=== PATIENT | female | born 1995 | race Caucasian/White ===

== ENCOUNTER 2018-06-10 14:13 | Emergency (ER) | payer BC ==
[2018-06-10] MEDS ORDERED: ONDANSETRON 4 MG/2 ML VIAL IVP ONE (14:27)
[2018-06-10] MEDS ORDERED: NS 1,000 ML IV ONE (14:27)
[2018-06-10 14:37] LABS: PLATELET COUNT 207 10^3/uL (150-400)
[2018-06-10] MEDS ORDERED: LORazepam 2 MG/ML INJ IVP ONE (14:38)
--- NOTE | 2018-06-10 14:43 | EDPHY ---
H & P Time Seen by Provider: 06/10/18 14:15 HPI/ROS: HPI Lightheaded, palpitations, anxious. 23-year-old female by ambulance. This patient reports that she was out running errands. She reports that while driving she had a sensation of a racing heart, feeling lightheaded with generalized weakness all over, shaky and feeling anxious. She reports that this was intermittent in nature but worsened when she was on her way home from [employer]. She then called the ambulance. She has had sensation similar to this in the past but not as intense. She does have a history of anxiety and panic attacks. She currently takes metformin for PCOS. She was also recently started on spironolactone a few days ago. She does not have any chest pain. No shortness of breath. She is feeling better now but states that she still feels mildly anxious. ROS: Constitutional: No fever, no chills. As above. Eyes: No discharge. No changes in vision. ENT: No sore throat. No nasal congestion or rhinorrhea. Respiratory: No cough. No shortness of breath. Cardiac: No chest pain, as above. Gastrointestinal: No abdominal pain, no vomiting, no diarrhea. Genitourinary: No hematuria. No dysuria or increased frequency with urination. Musculoskeletal: No back pain. No neck pain. No myalgias or arthralgias. Skin: No rashes. Neurological: No headache. No focal weakness or altered sensation. Past medical history: Seizure, attention deficit hyperactivity disorder. Social history: She is a student [employer]. No alcohol. No IV drugs or street drugs. She is here by herself. Physical Exam: General Appearance: Alert, she is mildly anxious but not in distress. This patient is responding to questions appropriately and in full sentences. This patient appears well-hydrated and well-nourished. Eyes: Pupils equal and round no pallor or injection. No lid edema, erythema or injection. Respiratory: There are no retractions, lungs are clear to auscultation with good air movement bilaterally. Cardiovascular: Regular rate and rhythm. No murmur. Gastrointestinal: Abdomen is soft and nontender, no masses, bowel sounds normal. No focal tenderness at McBurney's point. No Nieto sign. Neurological: Motor sensory function is grossly intact. Cranial nerves are normal. Gait is normal. Skin: Warm and dry, no rashes. Musculoskeletal: Neck is supple and nontender. Extremities are symmetrical. All joints range without pain or impingement. Psychiatric: No agitation. No depression. Database: EKG: EKG time is 3:42 p.m.; EKG shows a narrow complex normal sinus rhythm with a ventricular rate of 65. The [place], QRS, QT intervals are within normal limits. There are no ST-T wave changes indicative of ischemic or injury pattern. No evidence of right heart strain. No evidence of WPW, Brugada syndrome, hypertrophic cardiomyopathy. Interpreted by me. Imaging: Procedures: Emergency department course: Triage vital signs reviewed and are normal. IV was placed. She was placed on a life science taxonomist. She was started on IV normal saline with 500 cc to 1 L to be given over the next hour. She will be given 0.5 mg of IV Ativan for anxiety. EKG obtained and reviewed by myself. 4:00 p.m., the patient was re-evaluated, resting comfortably at this time. Her vital signs have remained normal throughout her emergency department course. Results of her blood work and EKG discussed with her. I feel her presentation is consistent with an anxiety reaction. She feels comfortable going home at this time. She declined the IV Ativan that was initially ordered for her. Follow-up and return to emergency department precautions have been reviewed with her. All of her questions were answered. She was discharged from the emergency department in good condition. Differential Diagnosis: The differential diagnosis on this patient includes but is not limited to panic attack, anxiety reaction. Hypoglycemia, electrolyte abnormality, arrhythmia unlikely. This represents a partial list of diagnoses considered. These considerations are based on history, physical exam, past history, reassessment and diagnostic testing. Smoking Status: Never smoked Constitutional: Initial Vital Signs Temperature (C) 37.1 C 06/10/18 14:15 Heart Rate 74 06/10/18 14:15 Respiratory Rate 18 06/10/18 14:15 Blood Pressure 128/79 H 06/10/18 14:15 O2 Sat (%) 94 06/10/18 14:15 O2 Delivery Mode Room Air Allergies/Adverse Reactions: No Known Allergies Allergy (Unverified 09/24/13 09:23) Home Medications: Medication Instructions Recorded Herbals/Supplements -Info Only 06/10/18 Herbals/Supplements -Info Only 06/10/18 Herbals/Supplements -Info Only 06/10/18 Multivitamin 06/10/18 Spironolactone 06/10/18 Vit D3-Vit K/Berberine/Hops 06/10/18 metFORMIN HCL [Metformin HCl] 500 mg PO 06/10/18 Medical Decision Making - Data Points Laboratory Results: Laboratory Results 06/10/18 14:23 06/10/18 14:23 06/10/18 06/10/18 06/10/18 14:23 14:23 14:23 WBC 6.38 10^3/uL 10^3/uL (3.80-9.50) RBC 5.05 10^6/uL 10^6/uL (4.18-5.33) Hgb 15.1 g/dL g/dL (12.6-16.3) Hct 45.7 % % (38.0-47.0) MCV 90.5 fL fL (81.5-99.8) MCH 29.9 pg pg (27.9-34.1) MCHC 33.0 g/dL g/dL (32.4-36.7) RDW 12.7 % % (11.5-15.2) Plt Count 207 10^3/uL 10^3/uL (150-400) MPV 10.7 fL fL (8.7-11.7) Neut % (Auto) 57.7 % % (39.3-74.2) Lymph % (Auto) 32.8 % % (15.0-45.0) [place] % (Auto) 7.5 % % (4.5-13.0) Eos % (Auto) 1.1 % % (0.6-7.6) Baso % (Auto) 0.6 % % (0.3-1.7) Nucleat RBC Rel Count 0.0 % % (0.0-0.2) Absolute Neuts (auto) 3.68 10^3/uL 10^3/uL (1.70-6.50) Absolute Lymphs (auto) 2.09 10^3/uL 10^3/uL (1.00-3.00) Absolute Monos (auto) 0.48 10^3/uL 10^3/uL (0.30-0.80) Absolute Eos (auto) 0.07 10^3/uL 10^3/uL (0.03-0.40) Absolute Basos (auto) 0.04 10^3/uL 10^3/uL (0.02-0.10) Absolute Nucleated RBC 0.00 10^3/uL 10^3/uL (0-0.01) Immature Gran % 0.3 % % (0.0-1.1) Immature Gran # 0.02 10^3/uL 10^3/uL (0.00-0.10) Sodium 139 mEq/L mEq/L (135-145) Potassium 5.1 mEq/L mEq/L (3.5-5.2) Chloride 100 mEq/L mEq/L (97-110) Carbon Dioxide 25 mEq/l mEq/l (22-31) Anion Gap 14 mEq/L mEq/L (6-14) BUN 13 mg/dL mg/dL (7-23) Creatinine 0.8 mg/dL mg/dL (0.6-1.0) Estimated GFR > 60 Glucose 77 mg/dL mg/dL (70-100) Calcium 10.5 mg/dL H mg/dL (8.5-10.4) Total Bilirubin 0.6 mg/dL mg/dL (0.1-1.4) Conjugated Bilirubin 0.1 mg/dL mg/dL (0.0-0.5) Unconjugated Bilirubin 0.5 mg/dL mg/dL (0.0-1.1) AST 38 IU/L IU/L (14-46) ALT 61 IU/L H IU/L (9-52) Alkaline Phosphatase 75 IU/L IU/L (38-126) Total Protein 9.2 g/dL H g/dL (6.3-8.2) Albumin 5.7 g/dL H g/dL (3.5-5.0) Lipase 141 IU/L IU/L (23-300) Beta HCG, Qual NEGATIVE Medications Given: Discontinued Medications Sodium Chloride (Ns) 1,000 mls @ 0 mls/hr IV EDNOW ONE; Wide Open PRN Reason: Protocol Stop: 06/10/18 14:28 Last Admin: 06/10/18 14:58 Dose: 1,000 mls Lorazepam (Ativan Injection) 0.5 mg IVP EDNOW ONE Stop: 06/10/18 14:39 Last Admin: 06/10/18 15:21 Dose: Not Given Ondansetron HCl (Zofran) 4 mg IVP EDNOW ONE Stop: 06/10/18 14:28 Last Admin: 06/10/18 15:22 Dose: Not Given Departure - Departure Disposition: Home, Routine, Self-Care Clinical Impression: Anxiety reaction Condition: Good Instructions: Anxiety (ED), Anxiolysis in Adults (ED) Additional Instructions: Read and follow provided instructions. Follow-up with your primary care physician in 1-2 days at the [facility] for re-evaluation as discussed. You should have your liver function tests repeated through them this week. Continue taking your medication as prescribed. Return to the emergency department for return of symptoms, fainting, heart palpitations or other serious concerns. Referrals: REYNALDO Santos,. [Clinic] - As per Instructions
[2018-06-10 16:22] VITALS: BP 103/61
--- NOTE | 2018-06-10 20:57 | CPEKG ---
Test Reason : OPEN Blood Pressure : / mmHG Vent. Rate : 065 BPM Atrial Rate : 065 BPM P-R Int : 129 ms QRS Dur : 076 ms QT Int : 408 ms P-R-T Axes : 038 019 021 degrees QTc Int : 425 ms Sinus rhythm Probable left atrial enlargement ST elev, probable normal early repol pattern Confirmed by Roosevelt Morgan [id number] on 06/10/2018 8:57:03 PM Referred By: Roosevelt Morgan Confirmed By:Roosevelt Morgan
== END 2018-06-10 16:21 | disposition home or self-care (01) ==
LOC: EDUNIT# → EDBD
DX: F41.1 Generalized anxiety disorder (principal); E86.9 Volume depletion, unspecified
CPT/HCPCS: J2060